=== PATIENT | female | born 1975 | race Caucasian/White ===

== ENCOUNTER → 2021-05-11 | Outpatient (CLI) | payer OTHER ==
[2021-05-11 14:28] LABS: HEMOGLOBIN 14.1 gm/dl (12.3-15.3); RED BLOOD COUNT 4.76 M/UL (4.00-5.10); WHITE BLOOD COUNT 8.1 K/UL (4.5-11.0)
[2021-05-11 14:41] LABS: BUN/CREATININE RATIO 11 (0-10)
== END ==
LOC: LAB 13:14
PROVIDERS: Nurse Practitioner
DX: J06.9 Acute upper respiratory infection, unspecified (principal)
CPT/HCPCS: 36415; 71046; 80053; 85025

== ENCOUNTER → 2021-07-31 | Outpatient (CLI) | payer OTHER | LOC: KOH-I 10:31 | DX: S83.105A Unspecified dislocation of left knee, initial encounter (principal); M17.12 Unilateral primary osteoarthritis, left knee | CPT/HCPCS: 73562 ==

== ENCOUNTER → 2021-08-12 | Outpatient (CLI) | payer OTHER | LOC: KOH-I 08-11 11:15 | DX: S83.92XA Sprain of unspecified site of left knee, initial encounter (principal); R93.6 Abnormal findings on diagnostic imaging of limbs | CPT/HCPCS: 73721 ==